=== PATIENT | female | born 1985 | race Caucasian/White ===

== ENCOUNTER 2024-07-17 11:07 | Outpatient (CLI) | payer BC, SELFPAY ==
--- NOTE | ~2024-07-17 | US_ITS ---
EXAMINATION: US thyroid DATE: 07/17/2024 11:19 INDICATION: Other specified abnormal findings of blood chemistry. TECHNIQUE: Multiple ultrasound images of the thyroid were obtained. COMPARISON: None. FINDINGS: The right thyroid lobe measures 4.8 x 1.5 x 1.5 cm. The left thyroid lobe measures 3.8 x 1.6 x 1.5 c m. In the left thyroid lobe, there is a 6 mm solid, hypoechoic, wider than tall nodule with smooth m argin without echogenic foci (TI-RADS TR4). IMPRESSION: 1. Small thyroid nodule, likely not clinically significant. No follow-up is needed. Reviewed, dictated and finalized at location A. IMPRESSION: 1. Small thyroid nodule, likely not clinically significant. No follow-up is nee ded.
== END 2024-07-17 11:08 | disposition home or self-care (01) ==
LOC: MICIMG 11:08
PROVIDERS: PCP Nurse Practitioner Family; Visit Provider Nurse Practitioner Family
DX: R79.89 Other specified abnormal findings of blood chemistry (principal); E04.1 Nontoxic single thyroid nodule
CPT/HCPCS: 76536

== ENCOUNTER → 2024-09-11 10:04 | Outpatient (CLI) | payer BC, SELFPAY ==
--- NOTE | ~2024-09-11 | XR_ITS ---
EXAMINATION: XR chest 2V DATE: 09/11/2024 10:23 INDICATION: Unspecified cough TECHNIQUE: PA and lateral views of the chest were obtained. COMPARISON: None FINDINGS: Mild opacities and bronchial wall thickening project over the posterior lower lung zone on the latera l projection. This is most likely right-sided with subtle increased density at the medial aspect of t he right hemidiaphragm on the frontal projection. The cardiomediastinal silhouette is normal. Mild th oracic spondylosis. IMPRESSION: 1. Mild opacities in the lower lungs, likely in the posterior medial right lower lobe which could rep resent atelectasis or pneumonia. Reviewed, dictated and finalized at location B. TRANSITION MGR IMPRESSION: 1. Mild opacities in the lower lungs, likely in the posterior medial right lowe r lobe which could represent atelectasis or pneumonia.
== END ==
PROVIDERS: PCP Nurse Practitioner Family; Visit Provider Nurse Practitioner Family
DX: R05.9 Cough, unspecified (principal); R91.8 Other nonspecific abnormal finding of lung field
CPT/HCPCS: 71046